=== PATIENT | female | born 1965 | race Caucasian/White ===

== ENCOUNTER 2024-06-29 11:51 | Emergency (ER) | payer OTHER, BC, SELFPAY ==
--- NOTE | ~2024-06-29 | XR_ITS ---
EXAMINATION: XR ankle RT min 3V, XR foot RT min 3V DATE: 06/29/2024 12:22 INDICATION: Lateral right foot and ankle pain post twisting injury TECHNIQUE: 1. Anteroposterior, mortise, additional oblique and lateral view of the right ankle were obtained. 2. Dorsoplantar, two oblique and lateral views of the right foot were obtained. COMPARISON: None. FINDINGS: Minimally distracted avulsion fracture at the tip of the lateral malleolus likely involving the footp late of the anterior talofibular ligament. Otherwise normal alignment at the right foot and ankle. No other fractures identified. Mild polyarticular osteoarthritis at the first metatarsophalangeal and a few tarsometatarsal and interphalangeal joints. Small Achilles and plantar calcaneal spurs. No ankle joint effusion. Mild soft tissue about the lateral malleolus. IMPRESSION: 1. Small minimally distracted avulsion fracture fragment at the tip of the lateral malleolus. Reviewed, dictated and finalized at location A. IMPRESSION: 1. Small minimally distracted avulsion fracture fragment at the tip of the late ral malleolus.
[2024-06-29 12:20] VITALS: BP 141/87; PULSE 77; RESP 16; TEMP 36.6; O2SAT 100
--- NOTE | 2024-06-29 12:21 | ED.LOWEXIN ---
HPI - Extremity Injury (Lower) General Chief Complaint: Extremity Injury, Lower Stated Complaint: twisted right ankle Source: patient Mode of arrival: ambulatory Limitations: no limitations History of Present Illness HPI Narrative: 59-year-old female presented for complaint of right ankle pain and swelling after injury 5 days ago. She states while at work she slipped on a cardboard box causing noted was the ankle. She endorses minimal pain and has been able to bear weight, but states that his continued to swell and has bruising. She has been applying ice, taking ibuprofen and elevating it and using a soft ankle support. Denies numbness, tingling, weakness or deformity of the ankle. Related Data Home Medications Medication Instructions Recorded Confirmed No Home Medications 06/29/24 06/29/24 Allergies Allergy/AdvReac Type Severity Reaction Status Date / Time No Known Allergies Allergy Verified 06/29/24 12:34 Review of Systems Review of Systems: CONSTITUTIONAL: Denies body aches, fever, chills CARDIOVASCULAR: Denies chest pain, palpitations, or edema. RESPIRATORY: Denies cough or dyspnea. SKIN: Denies wounds. MUSCULOSKELETAL: Reports right foot/ankle pain NEUROLOGIC: Denies headache, numbness, tingling, or weakness. All systems reviewed & are unremarkable except as noted in HPI and below PMFSH Comments At time of signature, I have reviewed and agree with nursing past medical, surgical, social and family history unless otherwise noted. Please see nursing chart for further information. There is no relevant family history pertinent to the presenting complaint Exam Narrative: GENERAL: Well-appearing CHEST: Speaks in full sentences. No respiratory distress. HEART: Regular rate and rhythm. Normal and equal peripheral pulses. EXTREMITIES: Right foot has normal strength and sensation, normal range of motion at ankle but endorses pain with dorsiflexion. Mild ecchymosis and swelling to lateral foot and ankle, No point tenderness. No open wounds, or obvious deformity; alignment normal, pulse palpable and equal bilaterally, skin warm, dry, pink. Capillary refill less than 3 seconds. SKIN: Warm, dry NEURO: Alert and oriented x3. PSYCH: Normal mood and affect Course Course Emergency Course: Patient is aware of diagnosis, understands and agrees to treatment plan. Anticipatory guidance given. Patient agrees to follow-up as directed and is aware of reasons to seek care at the emergency department. Portions of this record may have been created with voice recognition software Level of Care: [facility] Visit Vital Signs Vital signs: Reviewed MDM - Extremity Injury (Lower) MDM Narrative Medical decision making narrative: Discussed physical exam findings and x-ray. Patient plans to purchase a walking boot today from [facility] and will fu with ortho. Advised supportive measures and signs/symptoms to go to the ER. Pt is appropriate for outpt treatment and f/u. Differential Diagnosis Differential diagnosis: Likely ankle sprain and strain and ankle fracture Lab Data Lab results narrative: 59-year-old female presented for complaint of right ankle pain and swelling over the last 4 days. Endorses while at work she slipped on a cardboard box causing her to twist the ankle. Since then she has been able to tolerate weight-bearing but has continued to have pain and swelling. Has been icing and elevating the foot. Currently says pain is minimal. Imaging Data Radiologist's impression: Patient: Alda Orta : 1965 MR#: [id number] Age: 59 Acct:[id number] Loc: [facility] ADM Date: 06/29/24Attending Dr: Ordering Physician: Pratibha Denny APRN Date of Service: 06/29/24 Procedure(s): XR ankle RT min 3V; XR foot RT min 3V Accession Number(s): [id number]; [id number] cc: Pratibha Denny APRN; Onesimo, Daxa MARLEY~ EXAMINATION: XR ankle RT min 3V, XR foot RT min 3V DATE: 06/29/2024 12:22 INDICATION: Lateral right foot and ankle pain post twisting injury TECHNIQUE: 1. Anteroposterior, mortise, additional oblique and lateral view of the right ankle were obtained. 2. Dorsoplantar, two oblique and lateral views of the right foot were obtained. COMPARISON: None. FINDINGS: Minimally distracted avulsion fracture at the tip of the lateral malleolus likely involving the footplate of the anterior talofibular ligament. Otherwise normal alignment at the right foot and ankle. No other fractures identified. Mild polyarticular osteoarthritis at the first metatarsophalangeal and a few tarsometatarsal and interphalangeal joints. Small Achilles and plantar calcaneal spurs. No ankle joint effusion. Mild soft tissue about the lateral malleolus. IMPRESSION: 1. Small minimally distracted avulsion fracture fragment at the tip of the lateral malleolus. Discharge Plan Discharge Clinical Impression: Avulsion fracture of right ankle Patient Disposition: Home, Self-Care Condition: Stable Instructions: Antibiotic Form, Ankle Fracture (ED), Walking Boot (ED) Additional Instructions: Rest, ice and elevate the right foot Motrin 600mg every 8 hours, as needed, for pain (take with food). Tylenol 1000mg every 8 hours. You plan to purchase a walking boot from the [facility] today, wear it during the day Go to the ER immediately for increased pain, tingling/numbness, swelling, redness, etc Follow up with Orthopedic Surgery in 2 days for further evaluation - please call for an appointment. Prescriptions: No Action No Home Medications Follow-up/Referrals: Onesimo,Daxa Bates NP [Primary Care Provider] - Arnaldo Stahl MD [Physician] - ( Small minimally distracted avulsion fracture fragment at the tip of the lateral malleolus. ) Stand Alone Forms: Work/School Release IP
== END 2024-06-29 12:21 | disposition home or self-care (01) ==
PROVIDERS: Emergency Provider Nurse Practitioner Family; PCP Nurse Practitioner
DX: S82.61XA Displaced fracture of lateral malleolus of right fibula, initial encounter for closed fracture (principal); W18.09XA Striking against other object with subsequent fall, initial encounter; Y99.0 Civilian activity done for income or pay
CPT/HCPCS: 73610; 73630; 99203; G0463

== ENCOUNTER 2024-10-12 20:25 | Emergency (ER) | payer BC, SELFPAY ==
--- NOTE | ~2024-10-12 | CT_ITS ---
EXAMINATION: CTA chest abdomen pelvis DATE: 10/13/2024 9:33 WAX POT TENDER INDICATION: Right-sided back pain radiating to the chest TECHNIQUE: Computed tomographic angiography (CTA) of the chest was performed, along with multiple con tiguous axial images of the abdomen and pelvis with 100 mL Omnipaque-350 intravenous contrast. The do se-length product was 340.41 mGy-cm. Maximum intensity projection 3D-reconstructions of the aorta and other arteries were constructed by the technologist on a separate workstation. FINDINGS/OBSERVATIONS: PULMONARY ARTERIES: No filling defect is identified within the main or proximal pulmonary artery. The main pulmonary artery is not enlarged. THORACIC AORTA: No aneurysmal dilatation or dissection is present. The great vessels are intact LUNGS: Biapical scarring. The remainder of the lungs are clear. MEDIASTINUM: No morphologically suspicious or pathologically enlarged lymph nodes are identified with in the mediastinum or bilateral axilla. BONES OF THE CHEST: No acute fracture. No significant degenerative disease. No lytic or blastic lesions. SOFT TISSUES OF THE CHEST: Within the upper outer quadrant of the right breast is a well-circumscribe d focus of soft tissue attenuation measuring 15 x 13 mm. The soft tissues of the left breast are unremarkable. No pathologically enlarged or morphologically suspicious lymph nodes within the right axilla. HEART: The heart is of normal size, without pericardial effusion. LIVER: The liver enhances homogeneously and is not enlarged measuring 16 cm in longitudinal dimension. Diffu se fatty infiltration is present. GALLBLADDER AND BILIARY SYSTEM: The gallbladder is only minimally distended, and otherwise unremarkable. PANCREAS: The pancreas enhances homogeneously without ductal dilatation. SPLEEN: The spleen enhances homogeneously and is not enlarged measuring 8 cm in longitudinal dimension. KIDNEYS: The bilateral kidneys enhance symmetrically without hydronephrosis or renal calculi. ADRENAL GLANDS: Unremarkable. GASTROINTESTINAL TRACT: Trace fecal stasis. APPENDIX: The air-filled appendix is of normal caliber (axial series, images 145 through 159). VASCULATURE: Unremarkable. LYMPH NODES: No pathologically enlarged or morphologically suspicious lymph nodes within the retroperitoneum or at the root of the mesentery. PELVIC STRUCTURES: The bladder is minimally distended, and otherwise unremarkable. The uterus is either surgically absent or markedly atrophic. BODY WALL AND MUSCULOSKELETAL: Small fat-containing umbilical hernia. No significant degenerative disease within the lower thoracic or lumbosacral spine. IMPRESSION: No pulmonary embolus. No aortic dissection or aneurysmal dilatation. Well-circumscribed focus of soft tissue attenuation within the upper outer quadrant of the right chirag st for which mammography followed by a focused ultrasound is recommended (if not already performed). Fatty infiltration of the liver. Reviewed, dictated and finalized at location A. POT TENDER IMPRESSION: No pulmonary embolus. No aortic dissection or aneurysmal dilatation. Well-circumscribed focus of soft tissue attenuation within the upper outer quad rant of the right breast for which mammography followed by a focused ultrasound is recommended (if not already performed). Fatty infiltration of the liver.
--- NOTE | ~2024-10-12 | XR_ITS ---
CHEST RADIOGRAPH CLINICAL HISTORY: R sided chest pain . COMPARISON: None available TECHNIQUE: Single portable view of the chest. FINDINGS The cardiomediastinal silhouette is unremarkable. The lungs are clear. Visualized osseous structures and soft tissues are unremarkable. IMPRESSION: No focal infiltrate or effusion. Reviewed, dictated and finalized at location A. [facility]ARY
--- OUTSIDE RECORDS SUMMARY | 2024-10-12 20:28 | XMS_ITS | Clinical Summary ---
Author Organization [facility] [employer] [employer] Address [address] [place] [address] Care Team Providers Care Loom Overhauler Name Role Phone Charles Weaver MD Primary Care Provider [phone] Source Comments [facility] [employer],non-owned Affiliates and Associated Physician Practices is amultiple site organization consisting of ambulatory clinics and hospital sitesin [place], [place], [place] and [place]. This disclosure is being madepursuant to the Care Everywhere program and may not contain all informatio navailable regarding this patient. Last updated 18.[facility] [employer] Allergies No known active allergies Medications * Be aware that medications may not be up to date on this document. Alwaysverify current medications with the patient. Medication Sig Dispensed Refills Start Date End Date Status Dextromethorphan Polistirex (ROBITUSSIN 12 HOUR COUGH PO) Take by mouth as needed Active Zinc Sulfate (ZINC 15 PO) Take 1 Tab by mouth once daily as needed Active ferrous sulfate 162.5 (32.5 FE) TABS Take by mouth once daily Active ascorbic acid (VITAMIN C) 500 MG tablet Take 500 mg by mouth once daily as needed Active docusate sodium (COLACE) 100 MG capsule Take 1 Cap by mouth 2 times daily 60 Cap 2 11/01/2016 Active HYDROcodone-acetaminop hen (NORCO) 10-325 MG tablet Take 1 Tab by mouth every 4 hours as needed for Pain 20 Tab 11/01/2016 Active Active Problems Problem Noted Date Diagnosed Date 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 Prolapse of female pelvic organs 10/27/2016 ANASTACIA (stress urinary incontinence, female) 2016 Female cystocele 10/27/2016 Rectocele, female 10/27/2016 Social History Tobacco Use Types Packs/Day Years Used Date Smoking Tobacco: Never Alcohol Use Standard Drinks/Week Comments Yes 0 (1 standard drink = 0.6 oz pur e alcohol) Sex and Gender Information Value Date Recorded Sex Assigned at Not on file Gender Identity Not on file Sexual Orientation Not on file Last Filed Vital Signs Vital Sign Reading Time Taken Comments Blood Pressure 122/84 01/03/2017 10:13 AM CDT Pulse 77 11/01/2016 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 Temperature 36.6 C (97.8 F) 11/01/2016 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 Respiratory Rate 18 11/01/2016 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 Oxygen Saturation 100% 11/01/2016 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 Inhaled Oxygen Concentration - - Weight 58.5 kg (129 lb) 01/03/2017 10:13 AM CDT Height 171.5 cm (5' 7.5 ) 01/03/2017 10:13 AM CD T Body Mass Index 19.91 01/03/2017 10:13 AM CDT Plan of Treatment Health Maintenance Due Date Last Done Comments COLOGUARD (AGES 45-75) - COL ON CA SCREENING 1965 COLON MONITORING 1965 COLONOSCOPY - COLON CA SCREENING 1965 CT COLONOGRAPHY - COLON CA SCREENING 1965 Colorectal Cancer Screening 1965 FIT - COLON CA SCREENING 1965 FLEX SIG - COLON CA SCREENING 1965 LIPID TESTING 1965 MAMMOGRAM 1965 HIV SCREENING 1978 HEPATITIS C SCREENING 01/12/1981 DTAP/TDAP/TD VACCINES (1 - Tdap) 1982 PNEUMOCOCCAL VACCINE 50+ (1 of 1 - PCV) 2013 ZOSTER VACCINE (1 of 2) 2013 COVID-19 VACCINE ( - 2023-2 5 season) 2024 INFLUENZA VACCINE (#1) 2024 05/27/2019 DEPRESSION SCREENING 08/28/2024 Respiratory Syncytial Virus (RSV) Vaccine Pt: or over 60 yrs (1 - 1-dose 75+ series) 2038 HEPATITIS B VACCINE Aged Out No longe r eligible based on patient's age to complete this topic HIB VACCINE Aged Out No longer eligi ble based on patient's age to complete this topic HPV VACCINE Aged Out No longer eligi ble based on patient's age to complete this topic MENINGOCOCCAL (Group B) VACCINE Aged Out No longer eligible based on patient's age to complete this topic MENINGOCOCCAL VACCINE Aged Out No jared cooper eligible based on patient's age to complete this topic PNEUMOCOCCAL VACCINE Aged Out No long er eligible based on patient's age to complete this topic Medical Devices Implanted Type Area Winder Fixer Device Identifier Shelf Expiration Date Model / Serial / Lot Graft Tissue Xenform Ftl Bvn Drml Mtrx Implanted:Qty: 1 on 10/31/2016 by Stephan Goetz Che, MD at [facility] N/A: Vagina [employer] 10/25/2018 [id number] / / [id number] Advance Directives * Full Code (Latest Code Status on File) Date Activated Date Inactivated Comments 10/31/2016 2:14 PM 11/01/2016 3:30 PM Care Teams Loom Overhauler Relationship Specialty Start Date End Date Charles Waever MD PCP - General Internal Medicine 10/25/16
--- OUTSIDE RECORDS SUMMARY | 2024-10-12 20:28 | XMS_ITS | Clinical Summary ---
Author Organization [facility] Address [id number] [place] [id number] Care Team Providers Care Prototype Carpenter Name Role Phone Daxa Echols Jane DONELL Primary Care Provider [phone] Allergies No known active allergies Medications iron 18 mg tablet Take by mouth Active ibuprofen (ADVIL,MOTRIN) 100 mg tablet Take by mouth every 6 (six) hours as needed for mild pain (pain scale 1-4) prn Active ZINC SULFATE ORAL Take 1 tablet by mouth daily as needed Active calcium carbonate-vitami n D3 1,250mg (500mg elemental) - 5 mcg (200 units) per tablet Take 1 tablet by mouth daily Active aspirin 81 mg enteric coated tablet prn 4 Active benzonatate (TESSALON) 200 mg capsuleIndicatio ns:Acute non-recurrent maxillary sinusitis Take 1 capsule (200 mg total) by mouth 3 (three) times a day as needed for cough 30 capsule 1 Active Additional Information Patient not taking.Reported on 11/11/2021 meloxicam (MOBIC) 7.5 mg tablet meloxicam 7.5 mg tablet Active predniSONE (DELTASONE) 10 mg tablet Take 4 tabs days 1-3, take 3 tabs day 4-6, take 2 tabs day 7-9, take 1 tab days 10-14 32 tablet 3 Active triamcinolone (KENALOG) 0.1 % cream Apply to affected area 1-2 times daily as needed. Avoid face and groin. 30 g 3 Active hydrOXYzine (VISTARIL) 25 mg capsuleIndicatio ns:Contact dermatitis, unspecified contact dermatitis type, unspecified trigger Take 1 capsule (25 mg total) by mouth 3 (three) times a day as needed for itching for up to 5 days 15 capsule 3 Active Active Problems Problem Noted Date Diagnosed Date Bursitis of foot 01/20/2022 Plantar fasciitis of right foot 12/21/2021 Pain in right foot 12/20/2021 Celiac disease 06/02/2021 Assessment & Plan (11/28/2021 10:35 AM CDT): She is doing well with gluten free diet. Asymptomatic now. She will continue the dame and call if any problems. Assessment & Plan (06/02/2021 5:43 PM CDT): Most of her GI symptoms has resolved after she started a gluten free diet. Patient was encouraged to continue on the same. Information about celiac disease provided. Elevated liver enzymes 06/02/2021 Assessment & Plan (11/28/2021 10:44 AM CDT): Mild elevation before noted likely from celiac disease will repeat labs today including testing for chronic liver disease. Follow up in the office in 1 year. Assessment & Plan (06/02/2021 5:43 PM CDT): Mild elevation noted could be secondary to celiac disease. Will check JIMY and the smooth muscle antibody. Follow-up in the GI office in 6 months. Encounter for screening colonoscopy 12/28/2020 Overview (12/28/2020): Added automatically from request for surgery [id number] Dyspepsia 12/28/2020 Overview (03/11/2021): Added automatically from request for surgery [id number] Weight loss 12/28/2020 Overview (03/11/2021): Added automatically from request for surgery [id number] 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 Female cystocele 10/27/2016 Prolapse of female pelvic organs 10/27/2016 Rectocele, female 10/27/2016 ANASTACIA (stress urinary incontinence, female) 2016 Chest pain, unspecified 12/05/2013 Family history of heart disease 12/05/2013 Gastro-esophageal reflux disease without esophag itis 12/05/2013 Hypercholesterolemia 12/05/2013 Immunizations Name Administration Dates Next Due Influenza, Quadrivalent, Spl it, Preservative Free, Intramuscular 06/21/2019,05/27/2019 Influenza, Unspecified 05/27/2019 Pfizer SARS-CoV-2 Monovalent Vaccination (12+ Yrs) PURPLE 03/26/2021,03/05/2021 Surgical History Surgery Date Site/Laterality Comments VAGINAL HYSTERECTOMY 08/28/2016 - 08/27/2017 POSTERIOR REPAIR 08/28/2016 - 08/27/2017 Vaginal vault suspension HYSTEROSCOPY W/ ENDOMETRIAL ABLATION 08/28/2009 - 08/27/2010 SECTION, LOW TRANSVERSE COLONOSCOPY 2010 ? 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 Gender Identity Not on file Sexual Orientation Not on file Obstetrics History Para Term AB IAB SAB Ectopic Multiple Livin g Live Births 3 3 Date Outcome GA Total Labor Labor/2nd/3rd Weight Sex Type Anes PTL Hortensia A1 A5 Name Clin Para Para Para Last Filed Vital Signs Vital Sign Reading Time Taken Comments Blood Pressure 145/77 04/16/2023 5:41 PM CDT Pulse 67 04/16/2023 5:41 PM CDT Temperature 36.8 C (98.3 F) 04/16/2023 5:41 PM CDT Respiratory Rate 16 04/16/2023 5:41 PM CDT Oxygen Saturation 100% 04/16/2023 5:41 PM CDT Inhaled Oxygen Concentration - - Weight 59.8 kg (131 lb 14.4 oz) 04/16/2023 5:41 PM CDT Height 172.7 cm (5' 7.99 ) 04/16/2023 5:41 PM CDT Body Mass Index 20.06 04/16/2023 5:41 PM CDT Plan of Treatment Health Maintenance Due Date Last Done Comments Depression Screening 1965 Hepatitis C Screening 1965 Hepatitis B Screening 1981 Zoster Vaccine (1 of 2) 2013 Regular Well Visit/Exam 18-64 10/28/2020 10/29/2019 Covid-19 Vaccine (3 - season) 2024 03/26/2021, 03/05/2021 Influenza Vaccine (#1) 2024 9, 05/27/2019, 05/27/2019 Breast Cancer Screening-Mammogram 02/08/2025 02/09/2024, 06/10/2022, 04/04/2019, Additional history exists Colon Cancer Screening-Colonoscopy 04/05/2031 04/05/2021 DTaP/Tdap/Td Vaccine (2 - Td or Tdap) 08/31/2033 08/31/2023 Colon Cancer Screening-CT Colonography Discontinued 04/05/2021 Colon Cancer Screening-DNA Stool Discontinued 04/05/2021 Colon Cancer Screening-FIT Discontinued 04/05/2021 Colon Cancer Screening-Sigmoidoscopy Discontinued 04/05/2021 Pneumococcal vaccine <65 Aged Out No longer eligible based on patient's age to complete this topic Procedures Procedure Name Priority Date/Time Associated Diagnosis Comments SCREENING MAMMOGRAM BILATERAL W RAYO Schedule Routine, Read Routine (OP Routine) 02/09/2024 10:55 AM CDT Screening mammogram, encounter for COLONOSCOPY 04/05/2021 9:03 AM CDT from Last 3 Months or Most Recently Relevant to Health Maintenance Results * Screening Mammogram Bilateral W Rayo (02/09/2024 10:55 AM CDT) Anatomical Region Laterality Modality Breast Bilateral Mammography Narrative 02/13/2024 10:29 AM CDT Mammogram Technique: Bilateral Digital Breast Tomosynthesis, Bilateral C-view 2D Screening mammogram. Views obtained: bilateral craniocaudal and bilateral mediolateral oblique. Computer Aided Detection was performed. Mammogram Findings: The present examination has been compared to prior imaging studies performed at [facility] on 11/06/2019, and at [facility] on 04/04/2019 and 06/10/2022. The breasts are heterogeneously dense, which may obscure small masses. There is a mass in the right breast. There is no suspicious abnormality in either breast. Impression: Mass in the right breast is benign. Annual screening mammography is recommended. If supplemental screening is desired, breast MRI would be recommended in this patient with heterogeneously dense breasts. OVERALL FINAL ASSESSMENT: BI-RADS CATEGORY 2: Benign. Procedure Note Brittany Ramos MD - 02/13/2024 Mammogram Technique: Bilateral Digital Breast Tomosynthesis, Bilateral C-view 2D Screening mammogram. Views obtained: bilateral craniocaudal and bilateral mediolateral oblique. Computer Aided Detection was performed. Mammogram Findings: The present examination has been compared to prior imaging studies performed at [facility] on 11/06/2019, and at [facility] on 04/04/2019 and 06/10/2022. The breasts are heterogeneously dense, which may obscure small masses. There is a mass in the right breast. There is no suspicious abnormality in either breast. Impression: Mass in the right breast is benign. Annual screening mammography is recommended. If supplemental screeningis desired, breast MRI would be recommended in this patient with heterogeneously dense breasts. OVERALL FINAL ASSESSMENT: BI-RADS CATEGORY 2: Benign. us Self Screening Mammogram IMG MAMMO PROCEDURES Fi nal Result * COLONOSCOPY (04/05/2021 9:03 AM CDT) Anatomical Region Laterality Modality Other Narrative Procedure Note Den Houser MD - 04/05/2021 9:03 AM CDT [facility] Patient Name: Alda Oquendo Procedure Date: 04/05/2021 9:03 AM Date of : 1965 Admit Type: Outpatient Age: 56 Gender: Female Attending MD: Den Houser M.D. Room: [facility] ENDOSCOPY ROOM 1 Note Status: Finalized Patient Profile: This is a 56 year old female. Patient hascomplaints of persistent diarrhea and dyspepsia. No family history of colon cancer. Procedure: Colonoscopy Indications: Last colonoscopy: 2010, Clinically significant diarrhea of unexplained origin Referring MD: Charles Weaver M.D. Providers: Den Houser M.D. Impression: - The entire examined colon is normal. Biopsied. Recommendation: - Await pathology results. - Repeat colonoscopy in 5-10 years for screening purposes. - Continue present medications. Medicines: Monitored Anesthesia Care Complications: No immediate complications. Estimated Blood Loss: Estimated blood loss: none. Procedure: Pre-Anesthesia Assessment: - Prior to the procedure, a History and Physicalwas performed, and patient medications and allergieswere reviewed. The patient's tolerance of previous anesthesia was also reviewed. The risks andbenefits of the procedure and the sedation options and risks were discussed with the patient. All questions were answered, and informed consent was obtained. Prior Anticoagulants: The patient has taken no previous anticoagulant or antiplatelet agents. ASA Grade Assessment: I - A normal, healthy patient. After reviewing the risks and benefits, the patient was deemed in satisfactory condition to undergo the procedure. - Prior to the procedure, a History and Physicalwas performed, and patient medications and allergieswere reviewed. The patient's tolerance of previous anesthesia was also reviewed. The risks andbenefits of the procedure and the sedation options and risks were discussed with the patient. All questions were answered, and informed consent was obtained. Prior Anticoagulants: The patient has taken no previous anticoagulant or antiplatelet agents. ASA Grade Assessment: I - A normal, healthy patient. After reviewing the risks and benefits, the patient was deemed in satisfactory condition to undergo the procedure. The benefits, risks and alternatives of theprocedure and sedation were discussed and informed consentwas obtained. All questions were answered. Please referto the signed informed consent document in the medical record. The bowel preparation used was Miralax and bisacodyl tablets via split dose instruction. The scope was passed under direct vision. The Pediatric Colonoscope PCF-H190L [id number] was introducedthrough the anus and advanced to the the cecum, identifiedby appendiceal orifice and ileocecal valve. Thequality of the bowel preparation was excellent. Bowel prepwas administered using a split dose. Findings: The perianal and digital rectal examinations were normal. The terminal ileum appeared normal. The cecum appeared normal. The colon (entire examined portion) appeared normal. No inflammatory changes noted. No polyps and no mass lesions noted. Random biopsiesfor histology were taken with a cold forceps from the entire colon for evaluation of microscopic colitis. The rectum appeared normal. Electronically signed by Den Houser M.D. Den Houser M.D. 04/05/2021 11:01:41 AM Number of Addenda: 0 Note Initiated On: 04/05/2021 9:03 AM Procedure Code(s): --- Professional --- 39617, Colonoscopy, flexible; with biopsy, single or multiple Diagnosis Code(s): --- Professional --- R19.7, Diarrhea, unspecified CPT copyright 2019 [employer]. All rights reserved. The codes documented in this report are preliminary and upon landman reviewmay be revised to meet current compliance requirements. Recognized by the [place] [employer] for promoting quality in endoscopy Den Houser MD ENDOSCOPY PROCEDURES Final Result from Last 3 Months or Most Recently Relevant to Health Maintenance Insurance [employer] Advance Directives For more information, please contact: [phone] * Full Code (Latest Code Status on File) Date Activated Date Inactivated Comments 04/05/2021 9:17 AM 04/05/2021 3:50 PM * Full Code Date Activated Date Inactivated Comments 04/05/2021 9:17 AM 04/05/2021 9:17 AM Care Teams Prototype Carpenter Relationship Specialty Start Date End Date Daxa Echols NP [address] [place] [address] PCP - General Nurse Practitioner 01/15/24
--- OUTSIDE RECORDS SUMMARY | 2024-10-12 20:28 | XMS_ITS | Referral Summary ---
Author Organization [facility] Address [id number] [place] [id number] Care Team Providers Care Refractory Mixer Name Role Phone Daxa Echols Jane DONELL [...] be secondary to celiac disease. Will check JIYM and the smooth muscle antibody. Follow-up in the GI office in 6 months. 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 Female cystocele [...] SARS-CoV-2 Monovalent Vaccination (12+ Yrs) PURPLE 03/26/2021,03/05/2021 Social History Tobacco Use Types Packs/Day Years Used Date Smoking Tobacco: Never Smokeless Tobacco: Never Tobacco Cessation:Counseling Given: Not Answered Personal Safety Answer Date Recorded Getting School Help Needed Not on file 11/10 Comments No Sex and Gender Information Value Date Recorded Sex Assigned at Not on file 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 The breasts are [...] compared to prior imaging studies performed at [facility] on 11/06/2019, and at [facility] on 04/04/2019 and 06/10/2022. The breasts are [...] Houser MD - 04/05/2021 9:[address] [facility] Patient Name: Alda Oquendo Procedure Date: 04/05/2021 9:03 AM Date of : 1965 Admit Type: Outpatient Age: 56 Gender: Female Attending MD: Den Houser M.D. Room: [facility] ENDOSCOPY ROOM 1 Note Status: Finalized Patient [...] under direct vision. The Pediatric Colonoscope PCF-H190L [id number] was introducedthrough the anus and advanced to [...] 9:03 AM Procedure Code(s): --- Professional --- 60002, Colonoscopy, flexible; with biopsy, single or multiple Diagnosis Code(s): --- Professional --- R19.7, Diarrhea, unspecified CPT copyright 2019 [employer]. All rights reserved. The codes documented in this report are preliminary and upon divorce mediator reviewmay be revised to meet current compliance requirements. Recognized by the [employer] for promoting quality in endoscopy Den Houser MD ENDOSCOPY PROCEDURES Final Result from Last 3 Months or Most Recently Relevant to Health Maintenance Insurance [employer] O[employer] [facility] Address: [facility] [id number] [place] [address] [employer] Advance Directives For more information, please contact: [phone] * Full Code (Latest Code Status on File) Date Activated Date Inactivated Comments 04/05/2021 9:17 AM 04/05/2021 3:50 PM * Full Code Date Activated Date Inactivated Comments 04/05/2021 9:17 AM 04/05/2021 9:17 AM Care Teams Refractory Mixer Relationship Specialty Start Date End Date Daxa Echols NP [address] [place] [address] PCP - General Nurse Practitioner 01/15/24
--- OUTSIDE RECORDS SUMMARY | 2024-10-12 20:28 | XMS_ITS | Clinical Summary ---
Author Organization [facility] Address [address] [place] [address] Care Team Providers Care Manufacturing Applications Engineer Name Role Phone Daxa Echols Primary Care Provider [phone] Allergies No known active allergies Medications Calcium-Vitamin D 500-125 MG-UNIT Tab Take 1 tablet by mouth daily. Active ZINC SULFATE OR Take 1 tablet by mouth daily as needed. Active Ibuprofen 100 MG Tab Active Active Problems Problem Noted Date Diagnosed Date Bursitis of foot 01/20/2022 Plantar fasciitis of right foot 12/21/2021 Celiac disease (HHS/HCC) 06/02/2021 Overview (08/31/2023): Last Assessment & Plan: She is doing well with gluten free diet. Asymptomatic now. She will continue the dame and call if any problems. Elevated liver enzymes 06/02/2021 Overview (08/31/2023): Last Assessment & Plan: Mild elevation before noted likely from celiac disease will repeat labs today including testing for chronic liver disease. Follow up in the office in 1 year. 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 Female cystocele 10/27/2016 Prolapse of female pelvic organs 10/27/2016 Rectocele, female 10/27/2016 ANASTACIA (stress urinary incontinence, female) 2016 Family history of heart disease 12/05/2013 Gastro-esophageal reflux disease without esophag itis 12/05/2013 Hypercholesterolemia 12/05/2013 Encounters Date Type Department Care Team Description 08/02/2024 Scan [facility] SRV[facility] Scanned, [facility] Image (SCAN) from Last 3 Months Immunizations Name Administration Dates Next Due Influenza Adult (Generic) 05/27/2019 Tdap (Adacel) 08/31/2023 Family History Medical History Relation Comments Aneurysm Father Dementia Father Heart Disease Father Diabetes Mother Heart Disease Paternal Grandfather Heart Disease Paternal Grandmother Relation Status Comments Father Mother Paternal Grandfather Paternal Grandmother Social History Tobacco Use Types Packs/Day Years Used Date Smoking Tobacco: Never Smokeless Tobacco: Never Tobacco Cessation:Counseling Given: No Alcohol Use Standard Drinks/Week Comments Yes 0 (1 standard drink = 0.6 oz pur e alcohol) occasionally PHQ-2 Answer Date Recorded Patient Health Questionnaire-2 Score 0 08/31/2023 Comments No Sex and Gender Information Value Date Recorded Sex Assigned at Not on file Legal Sex Female 8:51 AM CDT Gender Identity Not on file Sexual Orientation Not on file Last Filed Vital Signs Vital Sign Reading Time Taken Comments Blood Pressure 123/82 09/13/2023 2:25 PM CALCULATION CLERK Pulse 67 08/31/2023 10:43 AM CALCULATION CLERK Temperature 37.1 C (98.7 F) 08/31/2023 10:43 AM CALCULATION CLERK Respiratory Rate 24 08/31/2023 10:43 AM CALCULATION CLERK Oxygen Saturation 99% 08/31/2023 10:43 AM CALCULATION CLERK Inhaled Oxygen Concentration - - Weight 59 kg (130 lb) 08/31/2023 10:43 AM CALCULATION CLERK Height 172.7 cm (5' 8 ) 08/31/2023 10:43 AM CALCULATION CLERK Body Mass Index 19.77 08/31/2023 10:43 AM CALCULATION CLERK Plan of Treatment Health Maintenance Due Date Last Done Comments Zoster Vaccines (1 of 2) 2013 COVID-19 Vaccine (2023-2 5 season) 2024 03/26/2021, 03/05/2021 Influenza Adult (#1) 2024 05/27/2019 PHQ-2 (Physician [place]) 08/28/2024 08/31/2023 Annual Physical 08/31/2024 08/31/2023, 12/21/2020 PHQ-2 (Physician [place]) 08/31/2024 08/31/2023 Mammogram Screening 02/08/2026 02/09/2024, 06/10/2022 Colorectal Cancer Screening Colonoscopy (10 Years) 04/05/2031 04/05/2021 DTaP, Tdap and Td Vaccines ( 2 - Td or Tdap) 08/31/2033 08/31/2023 RSV Immunization or 60+ Years (1 - 1-dose 75+ series) 2038 Hepatitis C Completed 12/21/2020 Meningococcal B Vaccine Aged Out No l onger eligible based on patient's age to complete this topic Meningococcal Vaccine Aged Out No jared cooper eligible based on patient's age to complete this topic Pneumococcal Vaccine: Pediatrics (0 to 5 Years) and At-Risk Patients (6 to 64 Years) Aged Out No longer eligible b ased on patient's age to complete this topic RSV Immunizations Under 20 Months Aged Out No longer eligible b ased on patient's age to complete this topic Procedures Procedure Name Priority Date/Time Associated Diagnosis Comments IMAGE GENERIC 08/02/2024 MAMMOGRAM GENERIC (SCAN ORDER) 02/09/2024 COLONOSCOPY/EGD GENERIC (SCAN ORDER) Routine 04/05/2021 HEPATITIS C ANTIBODY Routine 12/21/2020 9:40 AM CDT Need for hepatitis C screening test from Last 3 Months or Most Recently Relevant to Health Maintenance Results * IMAGE GENERIC (08/02/2024) Anatomical Region Laterality Modality Other 08/02/2024 [facility] Scanned SCANNING Final Resu lt * MAMMOGRAM GENERIC (SCAN ORDER) (02/09/2024) Anatomical Region Laterality Modality Other 02/09/2024 [facility] Scanned SCANNING Final Resu lt * COLONOSCOPY/EGD (04/05/2021) us Documents Scanned SCANNING Final Result [facility] * HEPATITIS C ANTIBODY (12/21/2020 9:40 AM CDT) HEPATITIS C AB NON-REACTI VE NON-REACT SOPHIE 12/22/2020 1:31 PM CDT [facility] Comment: ANTIBODIES TO HCV NOT DETECTED. DOES NOT EXCLUDE THE POSSIBILITY OF EXPOSURE TO HCV. 12/21/2020 9:40 AM CDT [facility] Final Result [facility] [address] [place] [address], [id number] from Last 3 Months or Most Recently Relevant to Health Maintenance Insurance [facility] Care Teams Manufacturing Applications Engineer Relationship Specialty Start Date End Date Daxa Echols APNP [address] [place], [place] [id number] PCP - General NURSE PRACTITIONER 12/17/20
--- OUTSIDE RECORDS SUMMARY | 2024-10-12 20:28 | XMS_ITS | Referral Summary ---
Author Organization [facility] [employer] Address [address] [place] [address] Care Team Providers Care Hadoop Consultant Name Role Phone Charles Weaver MD Primary Care Provider [phone] Source Comments [facility] [employer],non-owned Affiliates and Associated Physician Practices is amultiple site organization consisting of ambulatory clinics and hospital sitesin [place], [place], [place] and [place]. This disclosure is being madepursuant to the Care Everywhere program and may not contain all information available regarding this patient. Last updated 18.[facility] [employer] Allergies No known active allergies Medications * [...] AM CDT Pulse 77 11/01/2016 11:32 AM NONPROFIT DIRECTOR Temperature 36.6 C (97.8 F) 11/01/2016 11:32 AM NONPROFIT DIRECTOR Respiratory Rate 18 11/01/2016 11:32 AM NONPROFIT DIRECTOR Oxygen Saturation 100% 11/01/2016 11:32 AM NONPROFIT DIRECTOR Inhaled Oxygen Concentration - - Weight 58.5 kg (129 lb) 01/03/2017 10:13 AM CDT Height 171.5 cm (5' 7.5 ) 01/03/2017 10:13 AM CD T Body Mass Index 19.91 01/03/2017 10:13 AM CDT Functional Status Functional Status Response Date of Assess ment Is person deaf or have serious hearing difficult y? No 10/31/2016 Is person blind or have serious difficulty seein g? No 10/31/2016 Does person have serious dif ficulty walking/climbing stairs? No 10/31/2016 Does person have difficulty dressing/bathing? No 10/31/2016 Does person have difficulty doing errands alone? No 10/31/2016 Cognitive Status Response Date of Assessm ent Does person have difficulty concentrating/remembering/making decisions? No 10/31/2016 Plan of Treatment Not on file Medical Devices Implanted Type Area Physics Tutor Device Identifier Shelf Expiration Date Model / Serial / Lot Graft Tissue Xenform Ftl Bvn Drml Mtrx Implanted:Qty: 1 on 10/31/2016 by Stephan Goetz Che, MD at [facility] N/A: Vagina [employer] Micro[employer] 10/25/2018 [id number] / / [id number] Advance Directives * Full Code (Latest Code Status on File) Date Activated Date Inactivated Comments 10/31/2016 2:14 PM 11/01/2016 3:30 PM Care Teams Hadoop Consultant Relationship Specialty Start Date End Date Charles Weaver MD PCP - General Internal Medicine 10/25/16
--- OUTSIDE RECORDS SUMMARY | 2024-10-12 20:28 | XMS_ITS | Patient Health Summary ---
Author Organization [facility] [email or web address] Address [address] [place] [address] Care Team Providers Care Backend Tester Name Role Phone Charles Weaver MD Primary Care Provider [phone] Note from [facility][note 3],non-owned Affiliates and Associated Physician Practices is amultiple site organization consisting of ambulatory clinics and hospital sitesin [place], [place], [place] and [place]. This disclosure is being madepursuant to the Care Everywhere program and may not contain all information available regarding this patient. Last updated 18.[facility] Allergies No known active allergies Medications * Be aware that medications may not be up to date on this document. Alwaysverify current medications with the patient. * Dextromethorphan Polistirex (ROBITUSSIN 12 HOUR COUGH PO) Take by mouth as needed * Zinc Sulfate (ZINC 15 PO) Take 1 Tab by mouth once daily as needed * ferrous sulfate 162.5 (32.5 FE) TABS Take by mouth once daily * ascorbic acid (VITAMIN C) 500 MG tablet Take 500 mg by mouth once daily as needed * docusate sodium (COLACE) 100 MG capsule(Started 11/01/2016) Take 1 Cap by mouth 2 times daily 2 refills remaining * HYDROcodone-acetaminophen (NORCO) 10-325 MG tablet(Started 11/01/2016) Take 1 Tab by mouth every 4 hours as needed for Pain Active Problems Problem Noted Date Diagnosed Date [...] AM CDT Pulse 77 11/01/2016 11:32 AM CRITICAL CARE SPECIALIST Temperature 36.6 C (97.8 F) 11/01/2016 11:32 AM CRITICAL CARE SPECIALIST Respiratory Rate 18 11/01/2016 11:32 AM CRITICAL CARE SPECIALIST Oxygen Saturation 100% 11/01/2016 11:32 AM CRITICAL CARE SPECIALIST Inhaled Oxygen Concentration - - Weight 58.5 kg (129 lb) 01/03/2017 10:13 AM CDT Height 171.5 cm (5' 7.5 ) 01/03/2017 10:13 AM CD T Body Mass Index 19.91 01/03/2017 10:13 AM CDT Medical Devices Implanted Type Area Tree Wrapper Device Identifier Shelf Expiration Date Model / Serial / Lot Graft Tissue Xenform Ftl Bvn Drml Mtrx Implanted:Qty: 1 on 10/31/2016 by Stephan Goetz Che, MD at [facility] N/A: Vagina imagine Microvasive 10/25/2018 [id number] / / [id number] Procedures * APHERESIS/TRANSFUSION ORDER(Performed 11/02/2016) * CARDIAC RHYTHM STRIP ORDER(Performed 11/02/2016) * PATHOLOGY TISSUE EXAM (STL)(Performed 10/31/2016) Performed for Female stress incontinence, Uterovaginal prolapse, Midline cystocele * ENDOTRACHEAL TUBE NOTE(Performed 10/31/2016) * CYSTOSCOPY (FLEXIBLE/RIGID)(Performed 10/31/2016) Performed for Female stress incontinence, Uterovaginal prolapse, Midline cystocele * COLPORRHAPHY POSTERIOR(Performed 10/31/2016) Performed for Female stress incontinence, Uterovaginal prolapse, Midline cystocele * HYSTERECTOMY VAGINAL (TVH)(Performed 10/31/2016) Performed for Female stress incontinence, Uterovaginal prolapse, Midline cystocele * HCG URINE QUALITATIVE - POINT OF CARE(Performed 10/31/2016) * PATHOLOGY/GENETICS HISTORICAL-ONBASE(Performed 10/31/2016) * TYPE + SCREEN PANEL(Performed 10/25/2016) Performed for Pre-op testing * CBC W AUTO DIFFERENTIAL(Performed 10/25/2016) Performed for Pre-op testing * BLOOD TYPE VERIFICATION(Performed 10/25/2016) * CULTURE URINE COMPREHENSIVE(Performed 02/14/2013) * URINALYSIS - POINT OF CARE (AMB) [facility](Performed 08/28/1998) * CYTOLOGY SMEAR PAP THIN PREP(Performed 12/22/1997) Results * APHERESIS/TRANSFUSION ORDER (11/02/2016 8:26 PM CRITICAL CARE SPECIALIST) Narrative 11/02/2016 8:26 PM CRITICAL CARE SPECIALIST Ordered by an unspecified provider. Scanned Document NURSING - VITAL SIGN S AND ASSESSMENT * CARDIAC RHYTHM STRIP ORDER (11/02/2016 8:26 PM CRITICAL CARE SPECIALIST) Narrative 11/02/2016 8:26 PM CRITICAL CARE SPECIALIST Ordered by an unspecified provider. Scanned Document CARDIAC SERVICES ORD ERABLES * GROSS + MICRO EXAM (STL) (10/31/2016 11:24 AM CRITICAL CARE SPECIALIST) Case Report Surgical Pathology Report Case: [id number] Authorizing Provider: Stephan Goetz Che, MD Collected: 10/31/2016 11:24 AM Ordering Location: [facility] Received: 10/31/2016 01:12 PM Pathologist: Edie Newton MD Specimen: Uterus w Cervix 11/01/2016 2:42 PM CRITICAL CARE SPECIALIST [facility] Final Diagnosis 1. Uterus with cervix, excision: -- Secretory endometrium. -- Myometrium with no pathologic changes. -- Serosal adhesions, focal. -- Chronic cervicitis, mild. GM/arm 11/01/2016 2:42 PM CRITICAL CARE SPECIALIST [facility] Gross Description Received in formalin in a container labeled Alda Orta, uterus with cervix. The container holds a 110 g, 9 x 6.5 x 5.2 cm uterus with attached cervix. The serosa is pink-nelson and dull. The ectocervix measures 4.5 cm in diameter. The os is slit-shape and measures 1.4 cm. The endocervical canal measures 2.5 cm in length and has a nelson jones bone mucosa. The endometrial cavity is triangular and measures 3.5 cm from cornu to cornu x 4.2 cm in length. The endometrium is pink-nelson. The myometrium measures 2.8 cm in maximum thickness and is unremarkable. There are no lesions or masses grossly identified. There are no leiomyomas present. Parent Aide sections are submitted as follows: A1 - Anterior cervix A2 - Posterior cervix A3/A4 - Anterior endomyometrium and serosa A5/A6 - Posterior endomyometrium and serosa DYT/me 11/01/2016 2:[address] [facility] Microscopic Description Examination of the cervix reveals atrophic squamous mucosa and evidence of chronic cystic cervicitis. There is no evidence of dysplasia or malignancy. The endometrium shows a secretory pattern. The myometrium is unremarkable. The serosa shows focal adhesion formation. GM/arm 11/01/2016 2:[address] [facility] Disclaimer All histochemical and/or immunohistochemical results are interpreted with controls that demonstrate appropriate staining reactions before reporting results. Note on use of immunocytochemistry reagents: This test was developed and its performance characteristic determined by [facility], Department of Laboratory Medicine. It has not been cleared or approved by the U.S. Food and Drug Administration (FDA). The FDA has determined that such clearance or approval is not necessary. The test is used for clinical purpose. It should not be regarded as investigational or for research. This laboratory is certified to perform high complexity testing. 11/01/2016 2:[address] [facility] Embedded Images 11/01/2016 2:[address] [facility] Pathology/Cytolo gy SPECIMEN FROM UTERINE CERVIX OBTAINED BY HYSTERECTOMY / Unknown 10/31/2016 11:24 AM CRITICAL CARE SPECIALIST 10/31/2016 1:12 PM CRITICAL CARE SPECIALIST Stephan Goetz MD LAB - PATHOLOGY/CYTO LOGY ORDERABLES [facility] [address] [place] [address] * HCG URINE QUALITATIVE - POINT OF CARE (IP) (10/31/2016 8:34 AM CRITICAL CARE SPECIALIST) HCG Qual Urine Negative Negative [facility] QC Verified Yes Yes [facility] POC T TESTING Urine URINE / Unknown 10/31/2016 8 :34 AM CRITICAL CARE SPECIALIST Charles Gunter MD LAB - POINT OF CAR E ORDERABLES Performing Organization Address City/[facility]/ZIP Co de Phone Number [facility] [address] [place] [address] * PATHOLOGY/GENETICS HISTORICAL-ONBASE (10/31/2016) 10/31/2016 Historical Provider LAB - CHEMISTRY O RDERABLES Performing Organization Address [facility]/ZIP Co de Phone Number [address] * TYPE + SCREEN PANEL (10/25/2016 3:38 PM CRITICAL CARE SPECIALIST) ABO AB 10/25/2016 4:42 PM CRITICAL CARE SPECIALIST [facility] Rh Type Positive 10/25/2016 4:42 PM CRITICAL CARE SPECIALIST [facility] Comment:History check perfor med. No retype required. Antibody Screen Negative 10/25/2016 4:42 PM CRITICAL CARE SPECIALIST [facility] Blood Bank BLOOD SPECIMEN / Unknown Venipuncture / Unknown 10/25/2016 3:38 PM CRITICAL CARE SPECIALIST 10/25/2016 4:01 PM CRITICAL CARE SPECIALIST Stephan Goetz MD LAB - BLOOD BANK ORD ERABLES Performing Organization Address [facility] Co de Phone Number [facility] [address] * (ABNORMAL) CBC W AUTO DIFFERENTIAL (10/25/2016 3:38 PM CRITICAL CARE SPECIALIST) WBC 5.9 4.4 - 10.7 x10E9/L 10/25/2016 4:07 PM CRITICAL CARE SPECIALIST [facility] WBC Corrected x10E9/L 10/25/2016 4:07 PM CRITICAL CARE SPECIALIST [facility] RBC 4.17 3.80 - 5.20 x10E12/L 10/25/2016 4:07 PM CRITICAL CARE SPECIALIST [facility] Hemoglobin 11.2(L) 12.0 - 15.6 gm/dL 10/25/2016 4:07 PM CRITICAL CARE SPECIALIST [facility] Hematocrit 34.1(L) 35.9 - 45.5 % 10/25/2016 4:[address] [facility] MCV 81.8 80.7 - 98.3 fl 10/25/2016 4:[address] [facility] MCH 26.9 26.7 - 34.0 pg 10/25/2016 4:[address] [facility] MCHC 32.8 30.8 - 35.9 gm/dL 10/25/2016 4:[address] [facility] Platelet Count 263 153 - 416 x10E9/L 10/25/2016 4:[address] [facility] RDW-CV 14.4 12.1 - 14.9 % 10/25/2016 4:[address] [facility] MPV 10.2 9.4 - 12.9 fl 10/25/2016 4:[address] [facility] Neutrophils % 68.1 44.0 - 73.0 % 10/25/2016 4:[address] [facility] Lymphocytes % 20.9 20.0 - 43.0 % 10/25/2016 4:[address] [facility] Monocytes % 9.7 5.0 - 13.0 % 10/25/2016 4:[address] [facility] Eosinophils % 0.8 0.0 - 6.0 % 10/25/2016 4:[address] [facility] Basophils % 0.3 0.0 - 2.0 % 10/25/2016 4:[address] [facility] Immature Granulocytes 0.2 0 - 1 % 10/25/2016 4:[address] [facility] Neutrophil Absolute 4.01 2.01 - 7.14 x10E9/L 10/25/2016 4:[address] [facility] Lymphocytes Absolute 1.23 1.07 - 3.94 x10E9/L 10/25/2016 4:[address] [facility] Monocytes Absolute 0.57 0.26 - 1.07 x10E9/L 10/25/2016 4:[address] [facility] Eosinophils Absolute 0.05 0 - 0.47 x10E9/L 10/25/2016 4:[address] [facility] Basophils Absolute 0.02 0 - 0.08 x10E9/L 10/25/2016 4:[address] [facility] Immature Granulocytes Absolute 0.01 0.00 - 0.06 x10E9/L 10/25/2016 4:07 PM CRITICAL CARE SPECIALIST [facility] nRBC Auto 0 /100 WBC 10/25/2016 4:07 PM CRITICAL CARE SPECIALIST [facility] Blood BLOOD SPECIMEN / Unknown Venipuncture / Unknown 10/25/2016 3:38 PM CRITICAL CARE SPECIALIST 10/25/2016 4:01 PM CRITICAL CARE SPECIALIST Stephan Goetz MD LAB - HEMATOLOGY ORD ERABLES Performing Organization Address City/[facility]/ZIP Co de Phone Number [facility] [address] [place] [address] * BLOOD TYPE VERIFICATION (10/25/2016 3:35 PM CRITICAL CARE SPECIALIST) ABO AB 10/25/2016 4:43 PM CRITICAL CARE SPECIALIST [facility] Rh Type Positive 10/25/2016 4:43 PM CRITICAL CARE SPECIALIST [facility] Blood Bank BLOOD SPECIMEN / Unknown Venipuncture / Unknown 10/25/2016 3:35 PM CRITICAL CARE SPECIALIST 10/25/2016 4:07 PM CRITICAL CARE SPECIALIST Stephan Goetz MD LAB - BLOOD BANK ORD ERABLES Performing Organization Address [facility] Co de Phone Number [facility] [address] [place] [address] * CULTURE URINE COMPREHENSIVE (02/14/2013 2:45 PM CDT) Culture SEE NOTE [facility] ([facility]) Comment: CULTURE, URINE, SPECIAL MICRO NUMBER: [id number] TEST STATUS: FINAL SPECIMEN SOURCE: URINE SPECIMEN QUALITY: ADEQUATE RESULT: No Growth REPORT COMMENT: PREFERRED LAB:->[facility] Test Performed at: [address] [id number] FARZANEH SMALLS DO, MPH Urine specimen (specimen) URINE SPECIMEN COLLECTION, CATHETERIZED / Unknown 02/14/2013 2:45 PM CDT 02/14/2013 2:46 PM CDT Narrative [facility] ([facility]) - 02/17/2013 11:00 AM CDT Preferred Lab:->[facility] Stephan Goetz MD LAB - MICROBIOLOGY O RDERABLES [facility] ([facility]) * URINALYSIS - POINT OF CARE (AMB) [facility] (08/28/1998 12:00 AM CRITICAL CARE SPECIALIST) Glucose UA neg [facility] Bilirubin UA POCT neg [facility] Ketones UA POCT neg [facility] Specific [place] UA 1.010 [facility] Blood Urine POCT neg [facility] pH UA 5.0 [facility] Protein UA neg [facility] Urobilinogen UA neg [facility] Nitrite UA neg [facility] WBC UA neg [facility] Urine specimen (specimen) 08/28/1998 [facility] Bishnu ELMORE LAB - POINT OF CARE ORDERABLES [facility] * CYTOLOGY SMEAR PAP THIN PREP (12/22/1997 12:00 AM CDT) Result CASE NUMBER [id number] Comment: ORDERING PHYSICIAN REMBERTO ALEXANDER SPECIMEN TYPE PAP Smear Date 12/22/1997 Procedure Cervical/Endocervical, 1 Vial for Thin Prep Received Specimen Adequacy Satisfactory for Evaluation Categorization Within Normal Limits Snomed. 12/25/1997 1627 <1> Spot Machine Operator Severino Richards(ASCP) PAP Footnote The PAP smear is only a screening procedure to aid in the detection of cervical cancer and its precursors. It is not a diagnostic procedure and should not be used as the sole means to detect cervical cancer. Both false negative and false positive results have been experienced. MISCELLANEOUS SAMPLE S / Unknown 12/22/1997 12/23/1997 11:56 AM CDT Historical Provider LAB - PATHOLOGY/C YTOLOGY ORDERABLES Care Teams Backend Tester Relationship Specialty Start Date End Date Charles Weaver MD PCP - General Internal Medicine 10/25/16
[2024-10-12 20:48] VITALS: BP 120/87; PULSE 82; RESP 16; TEMP 36.3; O2SAT 100
--- OUTSIDE RECORDS SUMMARY | 2024-10-12 22:25 | XMS_ITS | Clinical Summary ---
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 The breasts [...] to prior imaging studies performed at [facility] on 11/06/2019, and at [facility] on 04/04/2019 and 06/10/2022. The breasts [...] - 04/05/2021 9:03 AM CDT [facility] Patient Name: Alda Oquendo Procedure Date: 04/05/2021 9:03 AM Date of : 1965 Admit Type: Outpatient Age: 56 Gender: Female Attending MD: Den Houser M.D. Room: [facility] ENDOSCOPY ROOM 1 Note Status: [...] under direct vision. The Pediatric Colonoscope PCF-H190L [id number] was introducedthrough the anus and advanced to [...] 9:03 AM Procedure Code(s): --- Professional --- 87294, Colonoscopy, flexible; with biopsy, single or multiple Diagnosis Code(s): --- Professional --- R19.7, Diarrhea, unspecified CPT copyright 2019 [employer]. All rights reserved. The codes documented in this report are preliminary and upon golf ball inspector reviewmay be revised to meet current compliance requirements. Recognized by the [place] [employer] for promoting quality in endoscopy Den Houser MD ENDOSCOPY PROCEDURES Final Result from Last 3 Months or Most Recently Relevant to Health Maintenance Insurance [employer] Advance Directives For more information, please contact: [phone] * Full Code (Latest Code Status on File) Date Activated Date Inactivated Comments 04/05/2021 9:17 AM 04/05/2021 3:50 PM * Full Code Date Activated Date Inactivated Comments 04/05/2021 9:17 AM 04/05/2021 9:17 AM Care Teams Dye House Supervisor Relationship Specialty Start Date End Date Daxa cEhols NP [address] [place] [address] PCP - General Nurse Practitioner 01/15/24
--- OUTSIDE RECORDS SUMMARY | 2024-10-12 22:25 | XMS_ITS | Clinical Summary ---
Author Organization [facility] Address [address] [place] [address] Care Team Providers Care Communications Assistant Name Role Phone Daxa Echols Primary Care Provider [phone] Allergies No known active allergies Medications [...] Comments Blood Pressure 123/82 09/13/2023 2:25 PM VEGETABLE PICKER Pulse 67 08/31/2023 10:43 AM VEGETABLE PICKER Temperature 37.1 C (98.7 F) 08/31/2023 10:43 AM VEGETABLE PICKER Respiratory Rate 24 08/31/2023 10:43 AM VEGETABLE PICKER Oxygen Saturation 99% 08/31/2023 10:43 AM VEGETABLE PICKER Inhaled Oxygen Concentration - - Weight 59 kg (130 lb) 08/31/2023 10:43 AM VEGETABLE PICKER Height 172.7 cm (5' 8 ) 08/31/2023 10:43 AM VEGETABLE PICKER Body Mass Index 19.77 08/31/2023 10:43 AM VEGETABLE PICKER Plan of Treatment Health Maintenance Due Date Last Done Comments Zoster Vaccines (1 of 2) 2013 COVID-19 Vaccine (2023-2 5 season) 2024 03/26/2021, 03/05/2021 Influenza Adult (#1) 2024 05/27/2019 PHQ-2 (Physician [place]) 08/28/2024 08/31/2023 Annual Physical 08/31/2024 08/31/2023, 12/21/2020 PHQ-2 (Physician [place]) 08/31/2024 08/31/2023 Mammogram Screening 02/08/2026 02/09/2024, 06/10/2022 [...] (08/02/2024) Anatomical Region Laterality Modality Other 08/02/2024 [facility] Scanned SCANNING Final Resu lt * MAMMOGRAM GENERIC (SCAN ORDER) (02/09/2024) Anatomical Region Laterality Modality Other 02/09/2024 [facility] Scanned SCANNING Final Resu lt * COLONOSCOPY/EGD (04/05/2021) us Documents Scanned SCANNING Final Result [facility] ONBASE * HEPATITIS C ANTIBODY (12/21/2020 9:40 AM CDT) HEPATITIS C AB NON-REACTI VE NON-REACT SOPHIE 12/22/2020 1:31 PM CDT [facility] Comment: ANTIBODIES TO HCV NOT DETECTED. DOES NOT EXCLUDE THE POSSIBILITY OF EXPOSURE TO HCV. 12/21/2020 9:40 AM CDT [facility] Final Result [facility] [address] [place] [address], [id number] from Last 3 Months or Most Recently Relevant to Health Maintenance Insurance [facility] Care Teams Communications Assistant Relationship Specialty Start Date End Date Daxa Echols APNP [address] [place], [place] [id number] PCP - General NURSE PRACTITIONER 12/17/20
--- OUTSIDE RECORDS SUMMARY | 2024-10-12 22:25 | XMS_ITS | Patient Health Summary ---
Author Organization [facility] Address [address] [place] [address] Care Team Providers Care Disbursement Clerk Name Role Phone Charles Weaver MD Primary Care Provider [phone] Note from [facility],non-owned Affiliates and Associated Physician Practices is amultiple site organization consisting of ambulatory clinics and hospital sitesin [place], [place], [place] and [place]. This disclosure is being madepursuant to the Care Everywhere program and may not contain all information available regarding this patient. Last updated 18.[facility] Allergies No known active allergies Medications * [...] AM CDT Pulse 77 11/01/2016 11:32 AM IT GENERALIST Temperature 36.6 C (97.8 F) 11/01/2016 11:32 AM IT GENERALIST Respiratory Rate 18 11/01/2016 11:32 AM IT GENERALIST Oxygen Saturation 100% 11/01/2016 11:32 AM IT GENERALIST Inhaled Oxygen Concentration - - Weight 58.5 kg (129 lb) 01/03/2017 10:13 AM CDT Height 171.5 cm (5' 7.5 ) 01/03/2017 10:13 AM CD T Body Mass Index 19.91 01/03/2017 10:13 AM CDT Medical Devices Implanted Type Area Bottom Crane Operator Device Identifier Shelf Expiration Date Model / Serial / Lot Graft Tissue Xenform Ftl Bvn Drml Mtrx Implanted:Qty: 1 on 10/31/2016 by Stephan Goetz Che, MD at [facility] N/A: Vagina [employer] Microvasive 10/25/2018 [id number] / / [id number] Procedures * APHERESIS/TRANSFUSION ORDER(Performed 11/02/2016) * CARDIAC [...] Results * APHERESIS/TRANSFUSION ORDER (11/02/2016 8:26 PM IT GENERALIST) Narrative 11/02/2016 8:26 PM IT GENERALIST Ordered by an unspecified provider. Scanned Document NURSING - VITAL SIGN S AND ASSESSMENT * CARDIAC RHYTHM STRIP ORDER (11/02/2016 8:26 PM IT GENERALIST) Narrative 11/02/2016 8:26 PM IT GENERALIST Ordered by an unspecified provider. Scanned Document CARDIAC SERVICES ORD ERABLES * GROSS + MICRO EXAM (STL) (10/31/2016 11:24 AM IT GENERALIST) Case Report Surgical Pathology Report Case: [id number] Authorizing Provider: Stephan Goetz Che, MD Collected: 10/31/2016 11:24 AM Ordering Location: [facility] INTRAOP Received: 10/31/2016 01:12 PM Pathologist: Edie Newton MD Specimen: Uterus w Cervix 11/01/2016 2:42 PM IT GENERALIST [facility] Final Diagnosis 1. Uterus with cervix, excision: -- Secretory endometrium. -- Myometrium with no pathologic changes. -- Serosal adhesions, focal. -- Chronic cervicitis, mild. GM/arm 11/01/2016 2:42 PM IT GENERALIST [facility] Gross Description Received in formalin in [...] grossly identified. There are no leiomyomas present. Dairy Tester sections are submitted as follows: A1 - Anterior cervix A2 - Posterior cervix A3/A4 - Anterior endomyometrium and serosa A5/A6 - Posterior endomyometrium and serosa DYT/me 11/01/2016 2:42 PM [facility] Microscopic Description Examination of the cervix reveals atrophic squamous mucosa and evidence of chronic cystic cervicitis. There is no evidence of dysplasia or malignancy. The endometrium shows a secretory pattern. The myometrium is unremarkable. The serosa shows focal adhesion formation. GM/arm 11/01/2016 2:42 PM [facility] Disclaimer All histochemical and/or immunohistochemical results are interpreted with controls that demonstrate appropriate staining reactions before reporting results. Note on use of immunocytochemistry reagents: This test was developed and its performance characteristic determined by [facility], Department of Laboratory Medicine. It has not been cleared or approved by the U.S. Food and Drug Administration (FDA). The FDA has determined that such clearance or approval is not necessary. The test is used for clinical purpose. It should not be regarded as investigational or for research. This laboratory is certified to perform high complexity testing. 11/01/2016 2:42 PM [facility] Embedded Images 11/01/2016 2:42 PM [facility] Pathology/Cytolo gy SPECIMEN FROM UTERINE CERVIX OBTAINED BY HYSTERECTOMY / Unknown 10/31/2016 11:24 AM IT GENERALIST 10/31/2016 1:12 PM IT GENERALIST Stephan Goetz MD LAB - PATHOLOGY/CYTO LOGY ORDERABLES [facility] [address] [place] [address] * HCG URINE QUALITATIVE - POINT OF CARE (IP) (10/31/2016 8:34 AM IT GENERALIST) HCG Qual Urine Negative Negative [facility] POCT TESTING QC Verified Yes Yes [facility] POC T TESTING Urine URINE / Unknown 10/31/2016 8 :34 AM IT GENERALIST Charles Gunter MD LAB - POINT OF CAR E ORDERABLES Performing Organization Address City/[facility]/ZIP Co de Phone Number [facility] POCT TESTING [address] [place] [address] * PATHOLOGY/GENETICS HISTORICAL-ONBASE (10/31/2016) 10/31/2016 Historical Provider LAB - CHEMISTRY O RDERABLES Performing Organization Address [facility]/ZIP Co de Phone Number [address] * TYPE + SCREEN PANEL (10/25/2016 3:38 PM IT GENERALIST) ABO AB 10/25/2016 4:42 PM IT GENERALIST [facility] BLOOD BANK LAB Rh Type Positive 10/25/2016 4:42 PM IT GENERALIST [facility] BLOOD BANK LAB Comment:History check perfor med. No retype required. Antibody Screen Negative 10/25/2016 4:42 PM IT GENERALIST [facility] BLOOD BANK LAB Blood Bank BLOOD SPECIMEN / Unknown Venipuncture / Unknown 10/25/2016 3:38 PM IT GENERALIST 10/25/2016 4:01 PM IT GENERALIST Stephan Goetz MD LAB - BLOOD BANK ORD ERABLES Performing Organization Address [facility] Co de Phone Number [facility] BLOOD BANK LAB [address] * (ABNORMAL) CBC W AUTO DIFFERENTIAL (10/25/2016 3:38 PM IT GENERALIST) WBC 5.9 4.4 - 10.7 x10E9/L 10/25/2016 4:07 PM IT GENERALIST [facility] WBC Corrected x10E9/L 10/25/2016 4:07 PM IT GENERALIST [facility] RBC 4.17 3.80 - 5.20 x10E12/L 10/25/2016 4:07 PM IT GENERALIST [facility] Hemoglobin 11.2(L) 12.0 - 15.6 gm/dL 10/25/2016 4:07 PM IT GENERALIST [facility] Hematocrit 34.1(L) 35.9 - 45.5 % 10/25/2016 4:07 PM [facility] MCV 81.8 80.7 - 98.3 fl 10/25/2016 4:07 PM [facility] MCH 26.9 26.7 - 34.0 pg 10/25/2016 4:07 PM [facility] MCHC 32.8 30.8 - 35.9 gm/dL 10/25/2016 4:07 PM [facility] Platelet Count 263 153 - 416 x10E9/L 10/25/2016 4:07 PM [facility] RDW-CV 14.4 12.1 - 14.9 % 10/25/2016 4:07 PM [facility] MPV 10.2 9.4 - 12.9 fl 10/25/2016 4:07 PM [facility] Neutrophils % 68.1 44.0 - 73.0 % 10/25/2016 4:07 PM [facility] Lymphocytes % 20.9 20.0 - 43.0 % 10/25/2016 4:07 PM [facility] Monocytes % 9.7 5.0 - 13.0 % 10/25/2016 4:07 PM [facility] Eosinophils % 0.8 0.0 - 6.0 % 10/25/2016 4:07 PM [facility] Basophils % 0.3 0.0 - 2.0 % 10/25/2016 4:07 PM [facility] Immature Granulocytes 0.2 0 - 1 % 10/25/2016 4:07 PM [facility] Neutrophil Absolute 4.01 2.01 - 7.14 x10E9/L 10/25/2016 4:07 PM [facility] Lymphocytes Absolute 1.23 1.07 - 3.94 x10E9/L 10/25/2016 4:07 PM [facility] Monocytes Absolute 0.57 0.26 - 1.07 x10E9/L 10/25/2016 4:07 PM [facility] Eosinophils Absolute 0.05 0 - 0.47 x10E9/L 10/25/2016 4:07 PM [facility] Basophils Absolute 0.02 0 - 0.08 x10E9/L 10/25/2016 4:07 PM [facility] Immature Granulocytes Absolute 0.01 0.00 - 0.06 x10E9/L 10/25/2016 4:07 PM IT GENERALIST [facility] nRBC Auto 0 /100 WBC 10/25/2016 4:07 PM IT GENERALIST [facility] Blood BLOOD SPECIMEN / Unknown Venipuncture / Unknown 10/25/2016 3:38 PM IT GENERALIST 10/25/2016 4:01 PM IT GENERALIST Stephan Goetz MD LAB - HEMATOLOGY ORD ERABLES Performing Organization Address City/[facility]/ZIP Co de Phone Number [facility] [address] [place] [address] * BLOOD TYPE VERIFICATION (10/25/2016 3:35 PM IT GENERALIST) ABO AB 10/25/2016 4:43 PM IT GENERALIST [facility] BLOOD BANK LAB Rh Type Positive 10/25/2016 4:43 PM IT GENERALIST [facility] BLOOD [facility] Blood Bank BLOOD SPECIMEN / Unknown Venipuncture / Unknown 10/25/2016 3:35 PM IT GENERALIST 10/25/2016 4:07 PM IT GENERALIST Stephan Goetz MD LAB - BLOOD BANK ORD ERABLES Performing Organization Address [facility] Co de Phone Number [facility] BLOOD BANK LAB [address] [place] [address] * CULTURE URINE COMPREHENSIVE (02/14/2013 2:45 PM CDT) Culture SEE NOTE [facility]) Comment: CULTURE, URINE, SPECIAL MICRO NUMBER: [id number] TEST STATUS: FINAL SPECIMEN SOURCE: URINE SPECIMEN QUALITY: ADEQUATE RESULT: No Growth REPORT COMMENT: PREFERRED LAB:->[facility] Test Performed at: [facility] [address] [id number] FARZANEH SMALLS DO, MPH Urine specimen (specimen) URINE SPECIMEN COLLECTION, CATHETERIZED / Unknown 02/14/2013 2:45 PM CDT 02/14/2013 2:46 PM CDT Narrative [facility] ([facility]) - 02/17/2013 11:00 AM CDT Preferred Lab:->[facility] Stephan Goetz MD LAB - MICROBIOLOGY O RDERABLES [facility] ([facility]) * URINALYSIS - POINT OF CARE (AMB) [facility] (08/28/1998 12:00 AM IT GENERALIST) Glucose UA neg [facility] Bilirubin UA POCT neg [facility] Ketones UA POCT neg [facility] Specific [place] UA 1.010 [facility] Blood Urine POCT neg [facility] pH UA 5.0 [facility] Protein UA neg [facility] Urobilinogen UA neg [facility] Nitrite UA neg [facility] WBC UA neg [facility] Urine specimen (specimen) 08/28/1998 [facility] Bishnu ELMORE LAB - POINT OF CARE ORDERABLES [facility] * CYTOLOGY SMEAR PAP THIN PREP (12/22/1997 12:00 AM CDT) Result CASE NUMBER [id number] Comment: ORDERING PHYSICIAN REMBERTO ALEXANDER SPECIMEN TYPE PAP Smear Date 12/22/1997 Procedure Cervical/Endocervical, 1 Vial for Thin Prep Received Specimen Adequacy Satisfactory for Evaluation Categorization Within Normal Limits Snomed. 12/25/1997 1627 <1> Burnishing Machine Operator Severino Richards(ASCP) PAP Footnote The [...] LAB - PATHOLOGY/C YTOLOGY ORDERABLES Care Teams Disbursement Clerk Relationship Specialty Start Date End Date Charles Weaver MD PCP - General Internal Medicine 10/25/16
--- OUTSIDE RECORDS SUMMARY | 2024-10-12 22:25 | XMS_ITS | Clinical Summary ---
Author Organization [facility] Address [address] [place] [address] Care Team Providers Care Solid Waste Collector Name Role Phone Charles Weaver MD Primary Care Provider [phone] Source Comments [facility],non-owned Affiliates and Associated Physician Practices is amultiple site organization consisting of ambulatory clinics and hospital sitesin [place], [place], [place] and [place]. This disclosure is being madepursuant to the Care Everywhere program and may not contain all information available regarding this patient. Last updated 18.[facility] Allergies No known active allergies Medications * [...] AM CDT Pulse 77 11/01/2016 11:32 AM SHAKER FLATWORK Temperature 36.6 C (97.8 F) 11/01/2016 11:32 AM SHAKER FLATWORK Respiratory Rate 18 11/01/2016 11:32 AM SHAKER FLATWORK Oxygen Saturation 100% 11/01/2016 11:32 AM SHAKER FLATWORK Inhaled Oxygen Concentration - - Weight 58.5 [...] this topic Medical Devices Implanted Type Area Production Clerk Device Identifier Shelf Expiration Date Model / Serial / Lot Graft Tissue Xenform Ftl Bvn Drml Mtrx Implanted:Qty: 1 on 10/31/2016 by Stephan Goetz Che, MD at [facility] N/A: Vagina [employer] 10/25/2018 [id number] / / [id number] Advance Directives * Full Code (Latest Code Status on File) Date Activated Date Inactivated Comments 10/31/2016 2:14 PM 11/01/2016 3:30 PM Care Teams Solid Waste Collector Relationship Specialty Start Date End Date Charles Weaver MD PCP - General Internal Medicine 10/25/16
--- OUTSIDE RECORDS SUMMARY | 2024-10-12 22:25 | XMS_ITS | Referral Summary ---
Author Organization [facility] Address [address] [place] [address] Care Team Providers Care Sewing Line Baler Name Role Phone Charles Weaver MD Primary Care Provider [phone] Source Comments [facility],non-owned Affiliates and Associated Physician Practices is amultiple site organization consisting of ambulatory clinics and hospital sitesin [place], [place], [place] and [place]. This disclosure is being madepursuant to the Care Everywhere program and may not contain all information available regarding this patient. Last updated 18.[facility] Allergies No known active allergies Medications * [...] AM CDT Pulse 77 11/01/2016 11:32 AM HEAD STOCK TRANSFER CLERK Temperature 36.6 C (97.8 F) 11/01/2016 11:32 AM HEAD STOCK TRANSFER CLERK Respiratory Rate 18 11/01/2016 11:32 AM HEAD STOCK TRANSFER CLERK Oxygen Saturation 100% 11/01/2016 11:32 AM HEAD STOCK TRANSFER CLERK Inhaled Oxygen Concentration - - Weight 58.5 [...] on file Medical Devices Implanted Type Area Spice Mixer Device Identifier Shelf Expiration Date Model / Serial / Lot Graft Tissue Xenform Ftl Bvn Drml Mtrx Implanted:Qty: 1 on 10/31/2016 by Stephan Goetz Che, MD at [facility] N/A: Vagina [employer]ED [employer] 10/25/2018 [id number] / / [id number] Advance Directives * Full Code (Latest Code Status on File) Date Activated Date Inactivated Comments 10/31/2016 2:14 PM 11/01/2016 3:30 PM Care Teams Sewing Line Baler Relationship Specialty Start Date End Date Charles Weaver MD PCP - General Internal Medicine 10/25/16
--- OUTSIDE RECORDS SUMMARY | 2024-10-12 22:25 | XMS_ITS | Referral Summary ---
Author Organization 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 The breasts are [...] prior imaging studies performed at [facility] on 11/06/2019, and at [facility] on 04/04/2019 and 06/10/2022. The breasts are [...] Houser MD - 04/05/2021 9:03 AM CDT [facility] Patient Name: Alda Oquendo Procedure Date: 04/05/2021 9:03 AM Date of : 1965 Admit Type: Outpatient Age: 56 Gender: Female Attending MD: Den Houser M.D. Room: [facility] ENDOSCOPY ROOM 1 Note Status: [...] under direct vision. The Pediatric Colonoscope PCF-[id number] was introducedthrough the anus and advanced to [...] 9:03 AM Procedure Code(s): --- Professional --- 52666, Colonoscopy, flexible; with biopsy, single or multiple Diagnosis Code(s): --- Professional --- R19.7, Diarrhea, unspecified CPT copyright 2019 [employer]. All rights reserved. The codes documented in this report are preliminary and upon floorperson reviewmay be revised to meet current compliance requirements. Recognized by the [employer] for promoting quality in endoscopy Den Houser MD ENDOSCOPY PROCEDURES Final Result from Last 3 Months or Most Recently Relevant to Health Maintenance Insurance [employer] Advance Directives For more information, please contact: [phone] * Full Code (Latest Code Status on File) Date Activated Date Inactivated Comments 04/05/2021 9:17 AM 04/05/2021 3:50 PM * Full Code Date Activated Date Inactivated Comments 04/05/2021 9:17 AM 04/05/2021 9:17 AM Care Teams Employee Operations Examiner Relationship Specialty Start Date End Date Daxa Echols NP [address] [place] [address] PCP - General Nurse Practitioner 01/15/24
[2024-10-12 23:39] LABS: Basophils Percent Auto 0.7 % (0.2-1.2); Eosinophils Absolute Auto 0.1 K/mm3 (0-0.3); Hematocrit 40.9 % (37.0-47.0); Immature Granulocyte Absolute 0.01 K/mm3 (0.00-0.031); Immature Granulocyte Percent A 0.2 % (0-0.5); Lymphocytes Absolute Auto 1.61 K/mm3 (0.9-3.2); Lymphocytes Percent Auto 28.6 % (18.3-44.2); Mean Corpuscular HGB Conc 34.2 g/dl (32-36); Mean Corpuscular Hemoglobin 30.4 pg (26-34); Mean Corpuscular Volume 88.7 fl (80-100); Mean Platelet Volume 10.7 fl (7.4-10.4); Monocytes Absolute Auto 0.6 K/mm3 (0.1-0.6); Monocytes Percent Auto 11.4 % (2.6-8.5); Neutrophils Absolute Auto 3.2 K/mm3 (1.3-6.7); Neutrophils Percent Auto 57.1 % (45.5-73.1); Platelet Count Result 258 k/mm3 (150-375); Red Blood Count 4.61 M/mm3 (4.2-5.4); Red Cell Distribution Width 11.9 % (11.5-14.5); White Blood Count 5.6 K/mm3 (4.5-10.0)
[2024-10-12 23:42] LABS: Add Urine Microscopic? YES; Appearance Urine Clear (Clear); Bacteria Urine None Seen /hpf; Bilirubin Urine Negative (Negative); Blood Urine Negative (Negative); Color Urine Yellow (Yellow); Glucose Urine UA Negative (Negative); Ketones Urine 3+ mg/dL (Negative); Leukocyte Esterase Ur 2+ LEU/UL (Negative); Nitrate Urine Negative (Negative); Non Pathogenic Casts 0-2; Protein Urine Negative (Negative); RBC Urine 0-2 /hpf (0-2); Specific Grav Ur 1.014 (1.001-1.035); Squamous Epithelial Cell Urine Occasional /hpf (Few); Urobilinogen Urine 0.2 mg/dL (<2.0); WBC Urine 21-50 /hpf (0-3)
[2024-10-12 23:47] LABS: Alanine Aminotransferase 24 U/L (6-35); Albumin Level 4.7 g/dL (3.5-5.1); Alkaline Phosphatase 80 U/L (38-126); Anion Gap 13 mmol/L (4-12); Aspartate Amino Transferase 30 U/L (14-36); Bilirubin,Total 0.9 mg/dL (0.2-1.3); Blood Urea Nitrogen 13 mg/dL (7-17); Carbon Dioxide 26 mmol/L (22-30); Chloride 101 mmol/L (98-107); Estimated CRCL calculation 70 ml/min; Estimated Glomerular Filt Rate > 60; Glucose 82 mg/dL (65-110); Lipase 62 U/L (23-300); Sodium 140 mmol/L (137-145)
[2024-10-13 00:04] VITALS: BP 123/84; PULSE 84; RESP 19; O2SAT 99
--- NOTE | 2024-10-13 00:30 | ECG_ITS ---
Test Date: 2024-10-13 01:26:14 Measurements Intervals [place] Rate: 63 P: 69 CT: 155 QRS: 14 QRSD: 98 T: 54 QT: 410 QTc: 422 Interpretive Statements SINUS RHYTHM BASELINE ARTIFACT- I, II, III, AVR, AVL, AVF, V1 NORMAL ECG No previous ECG available for comparison Electronically Signed On 10-13-2024 08:08:52 DIRECT SUPPORT WORKER by Efren Vasquez D.O.
--- NOTE | 2024-10-13 00:35 | ED.GENADULT ---
HPI - General Adult General Chief complaint: Back Pain/Injury Stated complaint: upper right back pain Time Seen by Provider: 10/12/24 22:20 History of Present Illness HPI narrative: This is a 59-year-old female presenting ED with a chief complaint of back pain. Symptoms started 4 days ago. There in the right thoracic area radiate to the center of her chest. Originally patient thought it was a muscle strain has been massaging it without much relief. She is denying fevers chills productive cough, recent viral illness, lower extremity edema or risk factors for DVT/PE. She has had some indigestion lately when she a with chest discomfort as well as significant belching. She is concerned it may be her gallbladder. She has no abdominal pain. Related Data Home Medications ?Medication ?Instructions ?Recorded ?Confirmed ?Last Taken ?Type ascorbate calcium (vitamin C) 500 500 mg PO DAILY 07/04/24 08/02/24 Unknown History mg tablet cholecalciferol (vitamin D3) 25 25 mcg PO DAILY 07/04/24 08/02/24 Unknown History mcg (1,000 unit) capsule multivitamin (Multiple Vitamins 1 tablet PO DAILY 07/04/24 08/02/24 Unknown History tablet) Allergies Allergy/AdvReac Type Severity Reaction Status Date / Time No Known Allergies Allergy Verified 10/12/24 20:52 [facility] Family History Family History Father Heart disease Scoliosis Arthritis Exam Narrative: APPEARANCE: No apparent distress. Head: atraumatic. EYES: EOMI, NOSE: Atraumatic NECK: Trachea midline RESPIRATORY: No increased rate of breathing, CTAB CARDIOVASCULAR: RRR, no peripheral edema ABDOMINAL: Non-distended soft nontender no guarding or rebound MUSCULOSKELETAl: Some tenderness over the right parathoracic msucles NEURO: Alert. Moving 4/4 extremities SKIN:: Warm, dry. Normal color PSYCHIATRIC: Normal affect Course Vital Signs Vital signs: Vital Signs Temperature 97.4 F L 10/12/24 20:48 Pulse Rate 82 10/12/24 20:48 Respiratory Rate 16 10/12/24 20:48 Blood Pressure 120/87 10/12/24 20:48 Pulse Oximetry 100 10/12/24 20:48 Oxygen Delivery Room Air 10/12/24 20:48 Temperature 97.4 F L 10/12/24 20:48 Pulse Rate 84 10/13/24 00:04 Respiratory Rate 19 10/13/24 00:04 Blood Pressure 123/84 10/13/24 00:04 Pulse Oximetry 99 10/13/24 00:04 Oxygen Delivery Room Air 10/12/24 20:48 Medical Decision Making [facility] Narrative Medical decision making narrative: -Course: 59-year-old female presenting with thoracic pain radiating to her chest. Workup including CTA chest abdomen pelvis, troponin and BNP were unremarkable. Pain most likely musculoskeletal. Patient given Toradol and Tylenol. Urine with 21-50 white blood cells +2 leuk esterase but the patient does not have any symptoms of UTI. This is discussed with the patient and she is comfortable taking a wait and see approach and avoiding antibiotics at this time. Patient will be discharged with primary care follow-up. She has been given return precautions. -DDX includes but is not limited to: Vascular pathology, pneumonia, neoplasm, muscle strain Vital Signs Vital Signs: Vital Signs Temperature 97.4 F L 10/12/24 20:48 Pulse Rate 82 10/12/24 20:48 Respiratory Rate 16 10/12/24 20:48 Blood Pressure 120/87 10/12/24 20:48 Pulse Oximetry 100 10/12/24 20:48 Oxygen Delivery Room Air 10/12/24 20:48 Temperature 97.4 F L 10/12/24 20:48 Pulse Rate 84 10/13/24 00:04 Respiratory Rate 19 10/13/24 00:04 Blood Pressure 123/84 10/13/24 00:04 Pulse Oximetry 99 10/13/24 00:04 Oxygen Delivery Room Air 10/12/24 20:48 Lab Data 10/12/24 23:29 10/12/24 23:29 Labs: Lab Results 10/12/24 Range/Units 23:29 WBC 5.6 (4.5-10.0) K/mm3 RBC 4.61 (4.2-5.4) M/mm3 Hgb 14.0 (12.0-15.0) g/dL Hct 40.9 (37.0-47.0) % MCV 88.7 (80-100) fl MCH 30.4 (26-34) pg MCHC 34.2 (32-36) g/dl RDW 11.9 (11.5-14.5) % Plt Count 258 (150-375) k/mm3 MPV 10.7 H (7.4-10.4) fl Immature Gran % (Auto) 0.2 (0-0.5) % Neut % (Auto) 57.1 (45.5-73.1) % Lymph % (Auto) 28.6 (18.3-44.2) % [place] % (Auto) 11.4 H (2.6-8.5) % Eos % (Auto) 2.0 (0-4.4) % Baso % (Auto) 0.7 (0.2-1.2) % Lymph # (Auto) 1.61 (0.9-3.2) K/mm3 [place] # (Auto) 0.6 (0.1-0.6) K/mm3 Eos # (Auto) 0.1 (0-0.3) K/mm3 Baso # (Auto) 0.0 (0.0-0.1) K/mm3 Abs Immat Gran (auto) 0.01 (0.00-0.031) K/mm3 Absolute Neuts (auto) 3.2 (1.3-6.7) K/mm3 Absolute Nucleated RBC 0.000 (0.0-0.012) K/mm3 Nucleated RBC % 0.0 (0.0-0.2) % Sodium 140 (137-145) mmol/L Potassium 4.0 (3.4-5.0) mmol/L Chloride 101 (98-107) mmol/L Carbon Dioxide 26 (22-30) mmol/L Anion Gap 13 H (4-12) mmol/L BUN 13 (7-17) mg/dL Creatinine 0.67 L (0.7-1.0) mg/dL Estim Creat Clear Calc 70 ml/min Estimated GFR > 60 (59 - ) Glucose 82 (65-110) mg/dL Calcium 10.0 (8.4-10.2) mg/dL Total Bilirubin 0.9 (0.2-1.3) mg/dL AST 30 (14-36) U/L ALT 24 (6-35) U/L Alkaline Phosphatase 80 (38-126) U/L Total Protein 9.0 H (6.3-8.2) g/dL Albumin 4.7 (3.5-5.1) g/dL Lipase 62 (23-300) U/L Urine Color Yellow (Yellow) Urine Appearance Clear (Clear) Urine pH 5.0 (5.0-9.0) Ur Specific [place] 1.014 (1.001-1.035) Urine Protein Negative (Negative) mg/dL Urine Glucose (UA) Negative (Negative) mg/dL Urine Ketones 3+ H (Negative) mg/dL Ur Blood (Man) Negative (Negative) Urine Nitrate Negative (Negative) Urine Bilirubin Negative (Negative) Urine Urobilinogen 0.2 (<2.0) mg/dL Leukocyte Esterase Rfl 2+ H (Negative) HELDER/UL Urine RBC 0-2 (0-2) /hpf Urine WBC 21-50 H (0-3) /hpf Ur Squamous Epith Cells Occasional (Few) /hpf Urine Bacteria None seen /hpf Urine Casts 0-2 Discharge Plan Discharge Clinical Impression: Back strain Patient Disposition: Home, Self-Care Condition: Stable Instructions: Antibiotic Form, Back Pain (ED) Additional Instructions: You were seen in the emergency department for back pain. Please take Motrin and Tylenol for symptoms. Please return to the ED if you develop chest pain shortness of breath or any new or worsening symptoms. Patient Language: [place] Island[place] Prescriptions: New ibuprofen 800 mg tablet 800 mg PO TID PRN (Reason: pain) 7 Days Qty: 21 0RF acetaminophen 500 mg tablet 1,000 mg PO TID PRN (Reason: luis) 7 Days Qty: 42 0RF No Action ascorbate calcium (vitamin C) 500 mg tablet 500 mg PO DAILY cholecalciferol (vitamin D3) 25 mcg (1,000 unit) capsule 25 mcg PO DAILY multivitamin [Multiple Vitamins] Tablet 1 tablet PO DAILY Follow-up/Referrals: Onesimo,Daxa Bates NP [Primary Care Provider] -
[2024-10-13] MEDS: SODIUM CHLORIDE 0.9% IV 1,000 ML 999 ML IV CONT (00:57)
[2024-10-13 01:00] LABS: NT Pro B Type Natriuretic Pept 38 pg/mL (19.9-100); Troponin I < 0.012 ng/mL (0.000-0.034)
[2024-10-13 02:03] VITALS: BP 130/90; PULSE 71; RESP 16; O2SAT 100; O2SAT 99
[2024-10-13] MEDS: KETOROLAC 15 MG/ML VIAL (*BKC) IV PUSH (02:17)
[2024-10-13] MEDS: ACETAMINOPHEN 500 MG TABLET 1000 MG PO (02:21)
[2024-10-13 02:46] VITALS: BP 139/84; PULSE 80; RESP 19; O2SAT 99
[2024-10-13 02:50] VITALS: BP 139/84; PULSE 80; RESP 19; O2SAT 99
== END 2024-10-13 02:54 | disposition home or self-care (01) ==
PROVIDERS: Physician Assistant; Emergency Provider Emergency Medicine; PCP Nurse Practitioner
DX: S29.012A Strain of muscle and tendon of back wall of thorax, initial encounter (principal); X58.XXXA Exposure to other specified factors, initial encounter; K76.0 Fatty (change of) liver, not elsewhere classified
CPT/HCPCS: 36415; 71045; 71275; 74174; 80053; 81001; 83690; 83880; 84484; 85025; 87086; 93005; 96361; 96374; 99284; A9270; J1885; J7030; Q9967